=== PATIENT | female | born 1935 | race Caucasian/White ===

== ENCOUNTER 2018-04-19 23:29 | Inpatient (IN) | payer OTHER, MEDICAID ==
[~2018-04-19] VITALS: Ht 162.6 cm; Wt 54.4 kg
[2018-04-20 00:22] LABS: HEMATOCRIT 43.1 % (37.0-47.0); HEMOGLOBIN 14.3 G/DL (12.0-16.0); MEAN CORPUSCULAR VOLUME 87 FL (80-99); PLATELET COUNT 367 K/UL (150-450); RED BLOOD COUNT 4.96 M/UL (4.20-5.40); RED CELL DISTRIBUTION WIDTH 13.7 % (11.6-14.8)
[2018-04-20 00:26] LABS: ANION GAP 11 mmol/L (5-15); BLOOD UREA NITROGEN 24 mg/dL (7-18); CALCIUM 9.8 MG/DL (8.5-10.1); CARBON DIOXIDE 25 MMOL/L (21-32); CHLORIDE 102 MMOL/L (98-107); CREATININE 1.1 MG/DL (0.55-1.30); POTASSIUM 4.7 MMOL/L (3.5-5.1); SODIUM 138 MMOL/L (136-145)
[2018-04-20] MEDS ORDERED: FLEET ENEMA133 ML RECTAL (00:39)
[2018-04-20] MEDS ORDERED: MULTIVITAMINS1 EAC8 ORAL (00:39)
[2018-04-20] MEDS ORDERED: DULCOLAX10 MG RC (00:39)
[2018-04-20] MEDS ORDERED: GUAIFENESI100 MG/5 M ORAL (00:39)
[2018-04-20] MEDS ORDERED: ACETAMINOP160 MG/5 M ORAL (00:39)
[2018-04-20] MEDS ORDERED: COLACE100 MG ORAL (00:39)
[2018-04-20] MEDS ORDERED: FOLIC ACID1 MG ORAL (00:39)
[2018-04-20] MEDS ORDERED: ASPIRIN81 MG ORAL (00:39)
[2018-04-20] MEDS ORDERED: MILK OF MA400 MG/51 ORAL (00:39)
[2018-04-20] MEDS ORDERED: ARTIFICIAL TEAR15 ML BOTH EYES (00:39)
--- NOTE | 2018-04-20 01:35 | Emergency Room Report ---
History of Present Illness General Chief Complaint: Skin Rash/Abscess Source: Medical Record, EMS Present Illness HPI Is an 83-year-old female with multiple medical problem including dementia. She presents from custodial with chief complaint of left thigh being swollen. Onset for last couple days. There is some redness and tenderness over that area. Unknown trauma. Patient unable to give any history. Does not appear to be in any pain. Allergies: Coded Allergies: PENICILLINS (Verified Allergy, Unknown, 04/19/18) SULFA (SULFONAMIDE ANTIBIOTICS) (Verified Allergy, Unknown, 04/19/18) Patient History Past Medical History: see triage record, old chart reviewed Past Surgical History: other Pertinent Family History: none Social History: Denies: smoking Now: No Immunizations: other Reviewed Nursing Documentation: PMH: Agreed; PSxH: Agreed Nursing Documentation-PMH Hx Gastrointestinal Problems: Yes - GASTROSTOMY,ACUTE KIDNEY FAILURE History Of Psychiatric Problem: Yes - MAJOR DEPRESSIVE DISORDER Review of Systems Eye: Denies: eye pain, blurred vision ENT: Denies: ear pain, nose congestion, throat swelling Respiratory: Denies: cough, shortness of breath Cardiovascular: Denies: chest pain, palpitations Gastrointestinal: Denies: abdominal pain, diarrhea, nausea, vomiting Musculoskeletal: Reports: muscle pain; Denies: back pain, joint pain Skin: Denies: rash Neurological: Denies: headache, numbness Endocrine: Denies: increased thirst, increased urine Hematologic/Lymphatic: Denies: easy bruising All Other Systems: negative except mentioned in HPI Physical Exam Vital Signs Date Time Temp Pulse Resp B/P (MAP) Pulse Ox O2 Delivery O2 Flow Rate FiO2 04/19/18 23:30 97.3 88 16 135/68 97 Room Air 97.3 vitals unremarkab Sp02 EP Interpretation: reviewed, normal General Appearance: well appearing, no apparent distress, alert, thin, Chronically Ill Head: normocephalic, atraumatic Eyes: bilateral eye PERRL, bilateral eye EOMI ENT: hearing grossly normal, normal pharynx Neck: full range of motion, supple, no meningismus Respiratory: chest non-tender, lungs clear, normal breath sounds Cardiovascular #1: regular rate, rhythm, no murmur Gastrointestinal: normal bowel sounds, non tender, no mass, no organomegaly, no bruit, non-distended Musculoskeletal: back normal, other - Right leg: Leg is shortened and there is edema to the proximal femur hip area. Pulses normal Psychiatric: mood/affect normal Skin: warm/dry Medical Decision Making Diagnostic Impression: Primary Impression: Fracture, intertrochanteric, left femur Qualified Codes: S72.142A - Displaced intertrochanteric fracture of left femur , initial encounter for closed fracture Additional Impression: UTI (urinary tract infection) Qualified Codes: N30.00 - Acute cystitis without hematuria ER Course Patient with left leg pain and has a displaced intertrochanteric fracture. She is otherwise stable. In no distress and in no pain. Will admit for orthopedic evaluation and possible surgery. I contacted Dr. Oliveira for admission. Lab Results Impression labs with elevated lactate Last Vital Signs Date Time Temp Pulse Resp B/P (MAP) Pulse Ox O2 Delivery O2 Flow Rate FiO2 04/19/18 23:30 97.3 88 16 135/68 97 Room Air 97.3 Status: improved Disposition: ADMITTED INPATIENT Condition: Serious Referrals: NOT CHOSEN MARLA/,REFERRING (PCP) YAHIR OG M.D. Apr 20, 2018 01:35
--- NOTE | 2018-04-20 01:38 | Diagnostic Imaging Report ---
EXAM: XR Left Hip 2 Views CLINICAL HISTORY: CP TECHNIQUE: Two views of the left hip. COMPARISON: No relevant prior studies available. FINDINGS: Bones/joints: Comminuted intertrochanteric fracture. There is some superior displacement of the distal fracture fragment. No plain film evidence for dislocation. Soft tissues: Vascular calcifications are projected in the soft tissues. Gastrointestinal tract: Some stool is projected in the rectum. IMPRESSION: Comminuted intertrochanteric fracture. There is some superior displacement of the distal fracture fragment.
[2018-04-20 01:39] VITALS: BP 139/70
--- NOTE | 2018-04-20 01:43 | Diagnostic Imaging Report ---
EXAM: XR Chest, 1 View CLINICAL HISTORY: CP TECHNIQUE: Frontal view of the chest. COMPARISON: No relevant prior studies available. FINDINGS: Lungs: Large lung volumes. No definite plain film evidence for focal infiltrate. Pleural space: No plain film evidence for pneumothorax. Heart: Prominence of the cardiac silhouette. Mediastinum: Unremarkable. Bones/joints: Degenerative changes of the thoracic spine. Probable old fracture deformity of the proximal right humerus. Vasculature: The aorta is tortuous. Upper abdomen: Clips are projected in the upper abdomen. IMPRESSION: 1. Prominence of the cardiac silhouette. 2. Large lung volumes.
[2018-04-20 02:44] LABS: APPEARANCE,URINE CLOUDY; BILIRUBIN, URINE NEGATIVE (NEGATIVE); COLOR,URINE PALE YELLOW; GLUCOSE, URINE (UA) NEGATIVE (NEGATIVE); KETONES,URINE NEGATIVE (NEGATIVE); LEUKOCYTE ESTERASE ,URINE 1+ (NEGATIVE); NITRITE,URINE POSITIVE (NEGATIVE); PH,URINE 7 (4.5-8.0); PROTEIN,URINE 1+ (NEGATIVE); UROBILINOGEN,URINE NORMAL MG/DL (0.0-1.0)
[2018-04-20] MEDS ORDERED: cefTRIAXone 1 GM in D5W 55 ML IVPB ONE (03:00)
[2018-04-20 04:00] VITALS: BP 151/101
[2018-04-20] MEDS ORDERED: Fleet's Enema 133ml RECTAL PRN (07:45)
[2018-04-20] MEDS ORDERED: guaiFENesin 100mg/5ml Liq ud ORAL PRN (07:45)
[2018-04-20] MEDS ORDERED: D5NS 1,000 ML IV SCH (07:45)
[2018-04-20] MEDS ORDERED: Milk of Magnesia 30ml Ud ORAL PRN (07:45)
[2018-04-20 08:00] VITALS: BP 129/87
[2018-04-20] MEDS ORDERED: Acetaminophen 500mg (ES) tab ORAL PRN (09:00)
[2018-04-20] MEDS ORDERED: Acetaminophen Soln 160mg/5ml ORAL SCH (09:00)
[2018-04-20] MEDS: Aspirin Baby 81mg ORAL SCH (09:34)
[2018-04-20] MEDS: Docusate 100mg cap ORAL SCH ×2 (09:34→18:46)
[2018-04-20] MEDS: cefTRIAXone 1 GM in D5W 55 ML IVPB SCH (09:34)
[2018-04-20] MEDS: Multivitamin w/Minerals tab ORAL SCH (09:34)
[2018-04-20] MEDS: Heparin 5000 units/ml inj SUBQ SCH ×2 (09:35→20:33)
[2018-04-20 12:00] VITALS: BP 128/77
[2018-04-20 15:57] VITALS: BP 135/71
[2018-04-20] MEDS: D5NS 1,000 ML IV SCH (18:47)
[2018-04-20 20:00] VITALS: BP 141/72
[2018-04-20] MEDS: HYDROcodone/Acetamin 10/325 tab ORAL PRN (23:52)
[2018-04-21] VITALS: BP 166/81
[2018-04-21 04:00] VITALS: BP 116/64
[2018-04-21] MEDS: D5NS 1,000 ML IV SCH ×3 (04:00→15:33)
[2018-04-21] MEDS: HYDROcodone/Acetamin 10/325 tab ORAL PRN ×2 (05:50→20:39)
[2018-04-21 07:35] LABS: HEMATOCRIT 28.4 % (37.0-47.0); MEAN CORPUSCULAR VOLUME 89 FL (80-99); PLATELET COUNT 238 K/UL (150-450); RED BLOOD COUNT 3.18 M/UL (4.20-5.40); RED CELL DISTRIBUTION WIDTH 13.9 % (11.6-14.8); WHITE BLOOD COUNT 10.1 K/UL (4.8-10.8)
[2018-04-21 08:00] VITALS: BP 109/56
--- NOTE | 2018-04-21 08:26 | General Progress Note ---
Assessment/Plan Assessment/Plan ho respiratory failure and trach GT dementia hip fracture osteoporosis confusion agitation depression PLAN proceed with ORIF post op care pending maintain meds NPO IV hydration pain control will follow up medically impression, plan, and exam edited and reviewed in detail care discussed with RN Subjective Allergies: Coded Allergies: PENICILLINS (Verified Allergy, Unknown, 04/19/18) SULFA (SULFONAMIDE ANTIBIOTICS) (Verified Allergy, Unknown, 04/19/18) Subjective planned surgery today events noted Objective Last 24 Hour Vital Signs Date Time Temp Pulse Resp B/P (MAP) Pulse Ox O2 Delivery O2 Flow Rate FiO2 04/21/18 08:00 97.8 78 19 109/56 (73) 98 97.8 04/21/18 04:00 97.4 66 18 116/64 (81) 97 97.4 04/21/18 00:00 98.2 94 20 166/81 (109) 99 98.2 04/20/18 23:50 166/81 04/20/18 21:00 Room Air 04/20/18 20:00 97.2 94 18 141/72 (95) 98 97.2 04/20/18 15:57 96.8 90 17 135/71 (92) 98 96.8 04/20/18 12:00 97.2 83 20 128/77 (94) 95 97.2 04/20/18 09:45 99.2 99.2 04/20/18 09:00 Room Air Intake and Output 04/20/18 04/21/18 19:00 07:00 Intake Total 381.67 ml 1200 ml Output Total 300 ml Balance 81.67 ml 1200 ml Intake Oral 360 ml IV Total 21.67 ml 1200 ml Output Urine Total 300 ml # Bowel Movements 1 Laboratory Tests 04/21/18 06:50: White Blood Count 10.1, Red Blood Count 3.18L, Hemoglobin 9.0L, Hematocrit 28.4L , Mean Corpuscular Volume 89, Mean Corpuscular Hemoglobin 28.3, Mean Corpuscular Hemoglobin Concent 31.7L, Red Cell Distribution Width 13.9, Platelet Count 238, Mean Platelet Volume 6.1L, Neutrophils (%) (Auto) , Lymphocytes (%) (Auto) , Monocytes (%) (Auto) , Eosinophils (%) (Auto) , Basophils (%) (Auto) , Neutrophils % (Manual) [Pending], Lymphocytes % (Manual) [Pending], Platelet Estimate [Pending], Platelet Morphology [Pending], Sodium Level [Pending], Potassium Level [Pending], Chloride Level [Pending], Carbon Dioxide Level [Pending], Blood Urea Nitrogen [Pending], Creatinine [Pending], Estimat Glomerular Filtration Rate [Pending], Glucose Level [Pending], Lactic Acid Level 1.80, Calcium Level [Pending], Magnesium Level [Pending], Total Bilirubin [Pending], Aspartate Amino Transf (AST/SGOT) [Pending], Alanine Aminotransferase (ALT/SGPT) [Pending], Alkaline Phosphatase [Pending], Troponin I 0.000, Pro-B-Type Natriuretic Peptide [Pending], Total Protein [Pending], Albumin [Pending], Globulin [Pending], Thyroid Stimulating Hormone (TSH) [ Pending] Height (Feet): 5 Height (Inches): 4.00 Weight (Pounds): 120 Objective WDWN NAD clear breath sounds bilaterally without rhonchi or wheeze [id number] without MRG NABS nontender no HSM; GT no CCE; left hip pain with any ROM confused and agitated Milad Oliveira MD Apr 21, 2018 08:26
[2018-04-21 08:37] LABS: ALANINE AMINOTRANSFERASE 15 U/L (12-78); ALBUMIN 2.1 G/DL (3.4-5.0); ALBUMIN/GLOBULIN RATIO 0.6 (1.0-2.7); ALKALINE PHOSPHATASE 60 U/L (46-116); ANION GAP 8 mmol/L (5-15); ASPARTATE AMINO TRANSFERASE 16 U/L (15-37); BILIRUBIN,TOTAL 0.4 MG/DL (0.2-1.0); BLOOD UREA NITROGEN 16 mg/dL (7-18); CALCIUM 8.2 MG/DL (8.5-10.1); CARBON DIOXIDE 25 MMOL/L (21-32); CHLORIDE 109 MMOL/L (98-107); CREATININE 0.8 MG/DL (0.55-1.30); POTASSIUM 3.7 MMOL/L (3.5-5.1); SODIUM 142 MMOL/L (136-145)
[2018-04-21] MEDS: Aspirin Baby 81mg ORAL SCH (08:49)
[2018-04-21] MEDS: Docusate 100mg cap ORAL SCH ×2 (08:49→17:44)
[2018-04-21] MEDS: Heparin 5000 units/ml inj SUBQ SCH ×2 (08:50→20:35)
[2018-04-21] MEDS: cefTRIAXone 1 GM in D5W 55 ML IVPB SCH (08:50)
[2018-04-21] MEDS: Multivitamin w/Minerals tab ORAL SCH ×2 (08:51→09:00)
--- NOTE | 2018-04-21 11:42 | Infectious Diseases Prog Note ---
Assessment/Plan Assessment/Plan A: UTI Left hip fracture Dementia Leukocytosis resolved Lactic acidosis, resolved P; Continue Rocephin Will f/u Urine culture Will ORIF of hip today Subjective ROS Limited/Unobtainable: Yes Allergies: Coded Allergies: PENICILLINS (Verified Allergy, Unknown, 04/19/18) SULFA (SULFONAMIDE ANTIBIOTICS) (Verified Allergy, Unknown, 04/19/18) Objective Vital Signs Last 24 Hour Vital Signs Date Time Temp Pulse Resp B/P (MAP) Pulse Ox O2 Delivery O2 Flow Rate FiO2 04/21/18 09:00 Room Air 04/21/18 08:00 97.8 78 19 109/56 (73) 98 97.8 04/21/18 04:00 97.4 66 18 116/64 (81) 97 97.4 04/21/18 00:00 98.2 94 20 166/81 (109) 99 98.2 04/20/18 23:50 166/81 04/20/18 21:00 Room Air 04/20/18 20:00 97.2 94 18 141/72 (95) 98 97.2 04/20/18 15:57 96.8 90 17 135/71 (92) 98 96.8 04/20/18 12:00 97.2 83 20 128/77 (94) 95 97.2 Height (Feet): 5 Height (Inches): 4.00 Weight (Pounds): 120 General Appearance: no acute distress HEENT: mucous membranes moist Respiratory/Chest: lungs clear Cardiovascular: normal rate Abdomen: soft, non tender Extremities: no edema Neurologic/Psychiatric: other - sleeping Microbiology Date/Time Source Procedure Growth Status 04/19/18 01:30 Urine,Clean Catch Urine Culture - Preliminary Gram Negative Bacillus 1 Resulted 04/20/18 02:06 Rectum VRE Culture Pending Resulted 04/20/18 02:06 Rectum - Preliminary Resulted Laboratory Tests Test 04/21/18 06:50 White Blood Count 10.1 K/UL (4.8-10.8) Red Blood Count 3.18 M/UL (4.20-5.40) L Hemoglobin 9.0 G/DL (12.0-16.0) L Hematocrit 28.4 % (37.0-47.0) L Mean Corpuscular Volume 89 FL (80-99) Mean Corpuscular Hemoglobin 28.3 PG (27.0-31.0) Mean Corpuscular Hemoglobin Concent 31.7 G/DL (32.0-36.0) L Red Cell Distribution Width 13.9 % (11.6-14.8) Platelet Count 238 K/UL (150-450) Mean Platelet Volume 6.1 FL (6.5-10.1) L Neutrophils (%) (Auto) % (45.0-75.0) Lymphocytes (%) (Auto) % (20.0-45.0) Monocytes (%) (Auto) % (1.0-10.0) Eosinophils (%) (Auto) % (0.0-3.0) Basophils (%) (Auto) % (0.0-2.0) Differential Total Cells Counted 100 Neutrophils % (Manual) 62 % (45-75) Lymphocytes % (Manual) 7 % (20-45) L Monocytes % (Manual) 21 % (1-10) H Eosinophils % (Manual) 8 % (0-3) H Basophils % (Manual) 1 % (0-2) Band Neutrophils 1 % (0-8) Platelet Estimate Adequate Platelet Morphology Normal Hypochromasia 2+ Anisocytosis 1+ Sodium Level 142 MMOL/L (136-145) Potassium Level 3.7 MMOL/L (3.5-5.1) Chloride Level 109 MMOL/L (98-107) H Carbon Dioxide Level 25 MMOL/L (21-32) Anion Gap 8 mmol/L (5-15) Blood Urea Nitrogen 16 mg/dL (7-18) Creatinine 0.8 MG/DL (0.55-1.30) Estimat Glomerular Filtration Rate mL/min (>60) Glucose Level 130 MG/DL (74-106) H Lactic Acid Level 1.80 mmol/L (0.4-2.0) Calcium Level 8.2 MG/DL (8.5-10.1) L Magnesium Level 1.9 MG/DL (1.8-2.4) Total Bilirubin 0.4 MG/DL (0.2-1.0) Aspartate Amino Transf (AST/SGOT) 16 U/L (15-37) Alanine Aminotransferase (ALT/SGPT) 15 U/L (12-78) Alkaline Phosphatase 60 U/L (46-116) Troponin I 0.000 ng/mL (0.000-0.056) Pro-B-Type Natriuretic Peptide 200 pg/mL (0-125) H Total Protein 5.8 G/DL (6.4-8.2) L Albumin 2.1 G/DL (3.4-5.0) L Globulin 3.7 g/dL Albumin/Globulin Ratio 0.6 (1.0-2.7) L Thyroid Stimulating Hormone (TSH) 1.062 uiU/mL (0.358-3.740) Current Medications Medications (Trade) Dose Ordered Sig/Chris Route PRN Reason Start Time Stop Time Status Last Admin Dose Admin Acetaminophen (Tylenol) 500 mg Q4H PRN ORAL Mild Pain/Temp > 100.5 04/20/18 09:00 05/20/18 08:59 Acetaminophen/ Hydrocodone Bitart ([place] 10/325) 1 tab Q4H PRN ORAL For Pain 04/20/18 07:45 04/27/18 07:44 04/21/18 05:50 Aspirin (ASA) 81 mg DAILY ORAL 04/20/18 09:00 05/20/18 08:59 04/20/18 09:34 Bisacodyl (Dulcolax) 10 mg DAILY RECTAL 04/20/18 09:00 05/20/18 08:59 04/20/18 09:34 Ceftriaxone Sodium 1 gm/ Dextrose 55 ml @ 110 mls/hr DAILY IVPB 04/20/18 09:00 04/27/18 08:59 04/21/18 08:50 Clonidine HCl (Catapres Tab) 0.1 mg Q4H PRN ORAL For High Blood Pressure 04/20/18 07:45 05/20/18 07:44 04/20/18 23:50 Dextrose/Sodium Chloride 1,000 ml @ 100 mls/hr Q10H IV 04/20/18 18:30 05/20/18 18:29 04/21/18 04:01 Docusate Sodium (Colace) 100 mg TWICE A DAY ORAL 04/20/18 09:00 05/20/18 08:59 04/20/18 18:46 Folic Acid (Folate) 1 mg DAILY ORAL 04/20/18 09:00 05/20/18 08:59 04/20/18 09:34 Guaifenesin (Robitussin) 300 mg Q4H PRN ORAL For Cough 04/20/18 07:45 05/20/18 07:44 Heparin Sodium (Porcine) (Heparin 5000 units/ml) 5,000 units EVERY 12 HOURS SUBQ 04/20/18 09:00 05/20/18 08:59 04/20/18 20:33 Magnesium Hydroxide (Mom) 30 ml DAILY PRN ORAL Constipation 04/20/18 07:45 05/20/18 07:44 Multivitamins Therapeutic (Therapeutic Multivitamin) 1 ea DAILY ORAL 04/20/18 09:00 05/20/18 08:59 04/20/18 09:34 Sodium Phosphate (Fleet's Sodium Phosl Enema) 133 ml DAILY PRN RECTAL Constipation 04/20/18 07:45 05/20/18 07:44 Viet Sheehan MD Apr 21, 2018 11:42
[2018-04-21 12:00] VITALS: BP 108/61
[2018-04-21] MEDS ORDERED: fentaNYL 100 mcg/2 mL IV ONE (14:19)
[2018-04-21] MEDS ORDERED: Midazolam 2mg/2ml Inj ONE ×2 (14:19→16:36)
[2018-04-21] MEDS ORDERED: Propofol 200mg/20ml IV ONE (14:20)
[2018-04-21] MEDS ORDERED: Lidocaine 1% MPF 10mg/ml 5ml ONE (14:20)
[2018-04-21 16:00] VITALS: BP 115/55
[2018-04-21] MEDS ORDERED: DiphenhydrAMINE 50mg/ml Inj IVP SCH (16:15)
--- NOTE | 2018-04-21 17:24 | General Progress Note ---
Assessment/Plan Problem List: (1) COPD (chronic obstructive pulmonary disease) ICD Codes: J44.9 - Chronic obstructive pulmonary disease, unspecified SNOMED: 37500279 (2) History of tracheostomy ICD Codes: Z98.890 - Other specified postprocedural states SNOMED: 439861007 (3) History of respiratory failure ICD Codes: Z87.09 - Personal history of other diseases of the respiratory system SNOMED: 602683015 (4) Hip fracture ICD Codes: S72.009A - Fracture of unspecified part of neck of unspecified femur , initial encounter for closed fracture SNOMED: 423090278 (5) UTI (urinary tract infection) ICD Codes: N39.0 - Urinary tract infection, site not specified SNOMED: 77918070 Qualifiers: Qualified Codes: N30.00 - Acute cystitis without hematuria (6) Fracture, intertrochanteric, left femur ICD Codes: S72.142A - Displaced intertrochanteric fracture of left femur, initial encounter for closed fracture SNOMED: 446154997 Qualifiers: Qualified Codes: S72.142A - Displaced intertrochanteric fracture of left femur, initial encounter for closed fracture Status: stable, not improved Assessment/Plan transfer to [facility] will d/w briefcase sewer resume diet dvt/stress ulcer prophylaxis Subjective ROS Limited/Unobtainable: No Constitutional: Reports: malaise, weakness HEENT: Reports: no symptoms Cardiovascular: Reports: no symptoms Respiratory: Reports: no symptoms Gastrointestinal/Abdominal: Reports: no symptoms Genitourinary: Reports: no symptoms Neurologic/Psychiatric: Reports: no symptoms Endocrine: Reports: no symptoms Hematologic/Lymphatic: Reports: no symptoms Allergies: Coded Allergies: PENICILLINS (Verified Allergy, Unknown, 04/19/18) SULFA (SULFONAMIDE ANTIBIOTICS) (Verified Allergy, Unknown, 04/19/18) All Systems: reviewed and negative except above Subjective no new complaints. no cp/sob. surgery cancelled because on insurance reasons Objective Last 24 Hour Vital Signs Date Time Temp Pulse Resp B/P (MAP) Pulse Ox O2 Delivery O2 Flow Rate FiO2 04/21/18 12:00 97.6 79 20 108/61 (77) 98 97.6 04/21/18 09:00 Room Air 04/21/18 08:00 97.8 78 19 109/56 (73) 98 97.8 04/21/18 04:00 97.4 66 18 116/64 (81) 97 97.4 04/21/18 00:00 98.2 94 20 166/81 (109) 99 98.2 04/20/18 23:50 166/81 04/20/18 21:00 Room Air 04/20/18 20:00 97.2 94 18 141/72 (95) 98 97.2 Intake and Output 04/20/18 04/21/18 19:00 07:00 Intake Total 381.67 ml 1200 ml Output Total 300 ml Balance 81.67 ml 1200 ml Intake Oral 360 ml IV Total 21.67 ml 1200 ml Output Urine Total 300 ml # Bowel Movements 1 Laboratory Tests 04/21/18 06:50: White Blood Count 10.1, Red Blood Count 3.18L, Hemoglobin 9.0L, Hematocrit 28.4L , Mean Corpuscular Volume 89, Mean Corpuscular Hemoglobin 28.3, Mean Corpuscular Hemoglobin Concent 31.7L, Red Cell Distribution Width 13.9, Platelet Count 238, Mean Platelet Volume 6.1L, Neutrophils (%) (Auto) , Lymphocytes (%) (Auto) , Monocytes (%) (Auto) , Eosinophils (%) (Auto) , Basophils (%) (Auto) , Differential Total Cells Counted 100, Neutrophils % ( Manual) 62, Lymphocytes % (Manual) 7L, Monocytes % (Manual) 21H, Eosinophils % ( Manual) 8H, Basophils % (Manual) 1, Band Neutrophils 1, Platelet Estimate Adequate, Platelet Morphology Normal, Hypochromasia 2+, Anisocytosis 1+, Sodium Level 142, Potassium Level 3.7, Chloride Level 109H, Carbon Dioxide Level 25, Anion Gap 8, Blood Urea Nitrogen 16, Creatinine 0.8, Estimat Glomerular Filtration Rate , Glucose Level 130H, Lactic Acid Level 1.80, Calcium Level 8.2L , Magnesium Level 1.9, Total Bilirubin 0.4, Aspartate Amino Transf (AST/SGOT) 16 , Alanine Aminotransferase (ALT/SGPT) 15, Alkaline Phosphatase 60, Troponin I 0.000, Pro-B-Type Natriuretic Peptide 200H, Total Protein 5.8L, Albumin 2.1L, Globulin 3.7, Albumin/Globulin Ratio 0.6L, Thyroid Stimulating Hormone (TSH) 1.062 Height (Feet): 5 Height (Inches): 4.00 Weight (Pounds): 120 General Appearance: WD/WN, confused, thin Neck: supple Cardiovascular: regular rhythm Respiratory/Chest: chest wall non-tender, lungs clear, normal breath sounds Abdomen: normal bowel sounds, non tender, soft, no organomegaly Edema: no edema noted Arm (L), no edema noted Arm (R), no edema noted Leg (L), no edema noted Leg (R), no edema noted Pedal (L), no edema noted Pedal (R), no edema noted Generalized Neurologic: alert, responsive Jeremy Ballesteros MD Apr 21, 2018 17:24
[2018-04-21 20:00] VITALS: BP 95/66
[2018-04-21] MEDS ORDERED: D5NS 1000ml IV ONE (22:56)
--- NOTE | 2018-04-22 10:50 | History and Physical Report ---
DATE OF ADMISSION: 04/20/2018 CHIEF COMPLAINT: Mechanical fall and left hip fracture. HISTORY OF PRESENT ILLNESS: The patient is a pleasant elderly female. She has a prior history of chronic respiratory failure, COPD, chronic kidney disease, and depression. She was transferred from a long-term facility after she sustained a mechanical fall with left hip pain. On evaluation in emergency room, she had x-ray evidence of a intertrochanteric hip fracture. She is now admitted for further evaluation and care. She denies any fevers or chills. She has had no chest pain. No palpitations. PAST MEDICAL HISTORY: As above. PAST SURGICAL HISTORY: Prior history of trach. CURRENT MEDICATIONS: Reconciled and reviewed. ALLERGIES: Include penicillin and sulfa. FAMILY HISTORY: Noncontributory. SOCIAL HISTORY: There is no known history of tobacco, ethanol, or drugs. REVIEW OF SYSTEMS: Unobtainable, as the patient is confused. PHYSICAL EXAMINATION: VITAL SIGNS: Temperature 100.1 degrees, pulse 19, and blood pressure 129/87. GENERAL: The patient is a well-developed female, in no apparent distress. HEART: Regular rate and rhythm. LUNGS: Clear. ABDOMEN: Soft, nontender and nondistended. EXTREMITIES: No clubbing, cyanosis, or edema. LABORATORY AND DIAGNOSTIC DATA: White count was 16,000 and hemoglobin 14. Sodium 138, potassium 4.7, chloride 102, bicarbonate 25, BUN 24, and creatinine 1.1. Lactic acid was 3.7. UA showed 5 to 10 wbc's with leukocyte esterase positive and nitrite positive. EKG results are currently pending. ASSESSMENT: This is a pleasant female with a history of dementia, chronic kidney disease, COPD, and prior history of respiratory failure, admitted with complaints of left hip fracture. 1. Possible left hip fracture. 2. Possible sepsis and UTI. 3. History of COPD. 4. Dementia. PLAN: IV antibiotics and IV hydration. Cardiology, Pulmonary, Infectious Disease, and Orthopedics consultation to be obtained. Once stable, the patient will need to have a definitive surgery for her hip fracture. Her urinary tract infection will need to be treated first. Jeremy Ballesteros M.D. DR: MIGUEL JOB#: [id number] CC:
--- NOTE | 2018-04-22 10:52 | Consultation ---
DATE OF CONSULTATION: 04/20/2018 INFECTIOUS DISEASE CONSULTATION This consult is for coverage of Dr. Alfredo. CONSULTING PHYSICIAN: Viet Sheehan M.D. PRIMARY ATTENDING PHYSICIAN: Milad Oliveira M.D. REASON FOR CONSULT: UTI. HISTORY OF PRESENT ILLNESS: This is an 83-year-old [facility] resident admitted today because of swelling in the left thigh area. The patient has dementia. It was found that the patient has a comminuted intertrochanteric fracture of left hip. She has leukocytosis and low-grade fever. The patient also had lactic acidosis. PAST MEDICAL HISTORY: Significant for dementia and major depression. ALLERGIES: Allergic to penicillin and sulfa drugs, but got a dose of ceftriaxone. MEDICATIONS: Getting heparin, aspirin, bisacodyl, multivitamin, folic acid, ceftriaxone, [place], clonidine, guaifenesin, milk of magnesia, and sodium phosphate. SOCIAL HISTORY: skilled nursing resident. . No other history obtainable by the patient. She does not speak. PHYSICAL EXAMINATION: GENERAL APPEARANCE: No acute distress. VITAL SIGNS: Temperature 97.2 degrees. T-max 101.1 degrees. HEAD AND NECK: [place] conjunctivae. No oral lesion. HEART: S1 and S2, regular. LUNGS: Clear. ABDOMEN: Soft and nontender. EXTREMITIES: No edema. SKIN: She has some erythematous rash and dry skin. LABORATORY AND DIAGNOSTIC DATA: WBC 16, hemoglobin 14.3, hematocrit 43.1, and platelet is 367,000. Lactic acid is 2.6. Sodium 138, potassium 4.7, chloride 102, bicarbonate 25, BUN 24, and creatinine 1.1. Hip x-ray showed fracture. Chest x-ray showed large lung volumes. UA showed wbc of 5-10, leukocyte esterase 1+, and nitrite positive. IMPRESSION: Pyuria, likely UTI. The patient has left femoral fracture, fever, leukocytosis, lactic acidosis, has advanced dementia, and major depression. RECOMMENDATION: We will continue ceftriaxone. We will follow up the orthopedic recommendation. We will follow up the cultures. At the end of my exam, I thank Dr. Oliveira for involving me in the care of this patient. Viet Sheehan M.D. DR: MAGGIE JOB#: [id number] CC:
--- NOTE | 2018-04-22 10:55 | Consultation ---
DATE OF CONSULTATION: 04/20/2018 CARDIOLOGY CONSULTATION FOR PREOPERATIVE CARDIOVASCULAR RISK ASSESSMENT CONSULTING PHYSICIAN: Bartolome Zamorano M.D. REQUESTING PHYSICIAN: Jeremy Ballesteros M.D. HISTORY OF PRESENT ILLNESS: This is an 83-year-old female. She has multiple medical problems. She has advanced dementia. She was transferred here from a half-way facility because of swelling of her left thigh. There was no report of any fall or trauma, but tenderness and redness over the area was noted apparently for the past two days. The patient was evaluated with radiographs and noted to have a displaced intertrochanteric left hip fracture. I have been asked to address perioperative cardiovascular risk. PAST MEDICAL HISTORY: Includes cerebrovascular disease, history of cerebrovascular accident, dysphagia with gastrostomy tube, depression, chronic kidney disease. ALLERGIES: Include penicillin and sulfa. FAMILY HISTORY: Noncontributory. SOCIAL HISTORY: No record of smoking, alcohol, or substance abuse. REVIEW OF SYSTEMS: Otherwise cannot be reliably obtained. PHYSICAL EXAMINATION: VITAL SIGNS: Afebrile, blood pressure 135/68, pulse 88, respirations 16. HEENT: Mild temporal wasting. Pale conjunctivae. Oropharynx clear. NECK: Supple. Jugular venous pressure normal. No bruits. LUNGS: Clear. CARDIAC: Regular rhythm and rate. Normal S1, S2 with a fourth heart sound. ABDOMEN: Soft, nontender. No guarding or rebound. EXTREMITIES: No clubbing or cyanosis. Left leg is foreshortened with edema in the painful area of the proximal femur. Distal pulses are palpable. LABORATORY DATA: White count 16, hemoglobin 14. Urinalysis with 5-10 white cells and many bacteria. Lactic acid is 2.6. BUN 24, creatinine 1.1. Potassium 4.7, glucose 137. EKG reveals sinus rhythm with no acute changes. IMPRESSION: 1. Acute fracture of the left hip. 2. Leukocytosis. 3. Advanced dementia. 4. Lactic acidosis. 5. Prerenal azotemia. 6. Hypovolemia. 7. Possible urinary tract infection. PLAN: 1. Hydration. 2. DVT prophylaxis. 3. Recheck white count. 4. Continue empiric antibiotics. 5. Antiplatelet therapy. 6. Echocardiogram. 7. Venous duplex scan. 8. Troponin level. 9. Further recommendations and final risk assessment to follow once aforementioned studies are obtained and lactic acidosis has been corrected. Bartolome Zamorano M.D. DR: RENETTA JOB#: [id number] CC:
--- NOTE | 2018-04-22 10:57 | Consultation ---
DATE OF CONSULTATION: 04/20/2018 ORTHOPEDIC CONSULTATION CONSULTING PHYSICIAN: Sanjiv Jackson M.D. CHIEF COMPLAINT: Left hip pain. HISTORY OF PRESENT ILLNESS: The patient is a pleasant 83-year-old female who was admitted for a left hip fracture. Orthopedic consultation was obtained for further care and recommendation. PAST MEDICAL HISTORY: Reviewed from the intake chart. PAST SURGICAL HISTORY: Reviewed from the intake chart. MEDICATIONS: Reviewed from the intake chart. PHYSICAL EXAMINATION: GENERAL: The patient is resting comfortably in the exam bed. EXTREMITIES: She has pain in the left hip. Posterior calf is soft. Neurovascular is normal. DIAGNOSTIC DATA: Imaging studies show a three-part intertrochanteric hip fracture. DISCUSSION: At this point, we recommend left hip open reduction and internal fixation of the hip was advised. She will be made NPO now pending medical clearance. She is medically stable for surgery. We will proceed with surgery later on in the evening. Risks, limitations, expectations, and complication of the procedure were discussed in detail. All questions were addressed. ADDENDUM NOTE: I was contacted by the nurse who is taking care of the patient and informed that for insurance purposes, the patient was transferred to an in-network facility for definitive operative care. Sanjiv Jackson M.D. DR: ZORAIDA JOB#: [id number] CC:
--- NOTE | 2018-04-22 10:58 | Progress Note ---
DATE: 04/21/2018 CARDIOLOGY PROGRESS NOTE SUBJECTIVE: The patient has no distress or pain. No shortness of breath. OBJECTIVE: VITAL SIGNS: Blood pressure 108/61, pulse 79, and respirations 20. LUNGS: Clear. CARDIAC: Regular. Normal S1 and S2. A 1/6 systolic murmur at apex. ABDOMEN: Soft, nontender. EXTREMITIES: Left lower extremity foreshortened. No edema. Palpable distal pulses. Good perfusion of the digits. LABORATORY DATA: White count 10 and hemoglobin 9. Sodium 142, potassium 3.7, bicarb 25, BUN 16, creatinine 0.8. Lactic acid has normalized to 1.8. Magnesium is 1.9. Albumin is 2.1. Troponin negative. Pro-natriuretic peptide 200. TSH 1.06. IMPRESSION: 1. Acute left hip fracture, reduced. 2. Lactic acidosis, resolved. 3. Prerenal azotemia. 4. Hypovolemia and dehydration, corrected. 5. Urinary tract infection. No clinical signs of congestive heart failure. 6. Coronary insufficiency. 7. 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 PLAN: 1. Stable now from a cardiovascular standpoint to proceed with surgery. 2. Disposition, dependent on insurance authorization. Stable from a cardiovascular standpoint for transfer to contracted facility. 3. Continue DVT prophylaxis. 4. Maintenance intravenous fluids. 5. Add beta-velvet prophylaxis preoperatively. Bartolome Zamorano M.D. DR: Kassandra JOB#: [id number] CC:
--- NOTE | 2018-04-22 15:06 | Discharge Summary ---
Discharge Summary Discharge Summary _ DATE OF ADMISSION: 04/20/2018 DATE OF DISCHARGE: 04/21/2018 REASON FOR ADMISSION: 83 years old female with past medical history of chronic respiratory failure, COPD, chronic kidney disease, depression, was transferred from the assisted facility after she sustained mechanical fall and started to experience left hip pain. Upon evaluation in emergency room x-ray revealed evidence of acute left femur intertrochanteric fracture. Patient noted leukocytosis with WBC 16, urinalysis with evidence of UTI , lactic acid 3.7. Patient admitted with diagnoses of acute left hip fracture ,urinary tract infection, possible sepsis, COPD,dementia ,lactic acidosis. CONSULTANTS: trust officer pulmonary dr. Oliveira orthopedic surgery dr. Jackson [facility] COURSE: Patient admitted to medical surgical floor. Care Advocate , orthopedic surgeon and infectious disease specialist were consulted. Echocardiogram revealed preserved ejection fraction of 60-65%. No evidence of wall motion abnormalities. No evidence of left ventricular hypertrophy, no evidence of pericardial pleural effusion. Right ventricular systolic pressure of 33. Care Advocate cleared patient for surgery. Patient started on empiric antibiotics as per ID recommendations. Urine culture grew Escherichia coli. Leukocytosis resolved the next day, no fevers. Orthopedic surgeon seen and evaluated patient and recommended to proceed with left hip open reduction and internal fixation. Patient made NPO . Patient was on IV hydration. Pain management was addressed, Supportive care provided. Later that day, patient was transferred to [facility] for insurance reason for surgery. FINAL DIAGNOSES: Acute left femur intertrochanteric fracture( s/p mechanical fall) Lactic acidosis Urinary tract infection with Escherichia coli Probable sepsis due to UTI and underlying acute fracture Lactic acidosis Dehydration-corrected Depression Osteoporosis DISCHARGE MEDICATIONS: List of medications was sent to accepting facility. DISCHARGE INSTRUCTIONS: [facility] as per insurance purposes for further management I have been assigned to dictate discharge summary for this account. I was not involved in the patient's management. Stefany Garcia NP Apr 22, 2018 15:06
--- NOTE | 2018-04-23 13:22 | Cardiology Report ---
APPROVED REPORT EXAM: Two-dimensional and M-mode echocardiogram with Doppler and color Doppler. INDICATION Angina pectoris M-Mode DIMENSIONS IVSd0.8 (0.7-1.1cm)Left Atrium (MM)3.7 (1.6-4.0cm) LVDd4.2 (3.5-5.6cm)Aortic Root2.9 (2.0-3.7cm) PWd0.9 (0.7-1.1cm)Aortic Cusp Exc.1.6 (1.5-2.0cm) LVDs2.9 (2.5-4.0cm) PWs1.0 cm Normal left ventricular chamber size, systolic function and wall motion. Left ventricular ejection fraction estimated to be 60-65 %. No evidence of left ventricular hypertrophy. No evidence of pericardial or pleural effusion. All other cardiac chamber sizes are within normal limits. Focal aortic valve sclerosis with adequate cusp excursion. Thickened mitral valve leaflets with normal excursion. Mild mitral annulus and aortic root calcification. Pulmonic valve not well visualized. Normal tricuspid valve structure. IVC is normal in size and collapsible with respiration. A color flow and spectral Doppler study was performed and revealed: Mild aortic regurgitation. Trace mitral regurgitation. Mitral diastolic velocities suggest reduced left ventricular relaxation c/w diastolic dysfunction grade 1. Mild tricuspid regurgitation. Tricuspid systolic velocities suggests peak right ventricular systolic pressure of 33 mmHg
== END 2018-04-21 22:57 | disposition short-term general hospital (02) | DRG 535 ==
LOC: EDBD 23:29 → EMR 23:55 → EDBEDREQ 04-20 01:50 → 3E 04-20 02:19
DX: S72.142A Displaced intertrochanteric fracture of left femur, initial encounter for closed fracture (principal); A41.9 Sepsis, unspecified organism; N39.0 Urinary tract infection, site not specified; E87.2 Acidosis; F03.90 Unspecified dementia, unspecified severity, without behavioral disturbance, psychotic disturbance, mood disturbance, and anxiety; J44.9 Chronic obstructive pulmonary disease, unspecified; Z93.0 Tracheostomy status; F32.9 Major depressive disorder, single episode, unspecified; I12.9 Hypertensive chronic kidney disease with stage 1 through stage 4 chronic kidney disease, or unspecified chronic kidney disease; N18.9 Chronic kidney disease, unspecified; Z93.1 Gastrostomy status; E86.1 Hypovolemia; E86.0 Dehydration; M81.0 Age-related osteoporosis without current pathological fracture; W19.XXXA Unspecified fall, initial encounter; Z88.0 Allergy status to penicillin; Z88.2 Allergy status to sulfonamides; Z86.73 Personal history of transient ischemic attack (TIA), and cerebral infarction without residual deficits; Y92.129 Unspecified place in nursing home as the place of occurrence of the external cause
CPT/HCPCS: 36415; 71045; 73502; 80048; 80053; 81001; 83605; 83735; 83880; 84443; 84484; 85007; 85025; 87081; 87086; 87181; 93306; J2250; J2405